=== PATIENT | female | born 1950 | race Two or more races ===

== ENCOUNTER 2019-03-19 06:53 | Emergency (ER) | payer OTHER ==
[~2019-03-19] VITALS: Ht 165.1 cm; Wt 61.2 kg
[~2019-03-19 06:53] MED LIST: AVALIDE 300-12.1 TA1; BYSTOLIC5 MG; JANUVIA100 MG; TESSALON PERLE100 MG PO; VYTORIN 10-40 M1 TAB
== END 2019-03-19 16:15 | disposition home or self-care (01) ==
LOC: ER 06:53
DX: K29.00 Acute gastritis without bleeding (principal)